=== PATIENT | female | born 1965 | race Caucasian/White ===

== ENCOUNTER 2017-06-24 06:30 | Day surgery (SDC) | payer OTHER ==
[~2017-06-24 06:30] MED LIST: Lactated Ringers 1,000 ML IV SCH; Lidocaine 1%/Sod Bicarbonate in NS 8.4% 1 ML Syringe PRN; Sodium Chloride 0.9% 10 ML Syringe FLUSH PRN
[2017-06-24] MEDS ORDERED: Bupivacaine 0.5% 30 ML SDV ONE (06:31)
[2017-06-24] MEDS ORDERED: Lidocaine 1% 50 ML MDV ONE (06:34)
[2017-06-24] MEDS ORDERED: Bupivacaine 0.25% 30 ML SDV ONE (06:34)
--- NOTE | 2017-06-24 06:57 | PCM.PREANE ---
Preanesthetic Assessment - Anesthesia/Transfusion/Family Hx Anesthesia History: Prior Anesthesia Without Reaction Family History of Anesthesia Reaction: No Transfusion History: No Prior Transfusion(s) - Review of Systems General: No Symptoms Pulmonary: No Symptoms Cardiovascular: No Symptoms Gastrointestinal: No Symptoms Neurological: Numbness (right hand carpal tunnel) Other: Reports: None - Physical Assessment NPO Status Date: 06/23/17 NPO Status Time: 18:00 Pulse: 74 O2 Sat by Pulse Oximetry: 100 Respiratory Rate: 16 Blood Pressure: 110/75 Temperature: 36.4 C Height: 1.6 m Weight: 57 kg ASA Class: 1 Mental Status: Alert & Oriented x3 Airway Class: Mallampati = 1 Dentition: Reports: Normal Dentition, [place](s) Thyro-Mental Finger Breadths: 3 Mouth Opening Finger Breadths: 3 ROM/Head Extension: Full Lungs: Clear to Auscultation, Normal Respiratory Effort Cardiovascular: Regular Rate, Regular Rhythm - Lab Values: Laboratory Last Values MRSA (PCR) Negative 06/22/17 08:38 - Allergies Allergies/Adverse Reactions: Allergies Allergy/AdvReac Type Severity Reaction Status Date / Time No Known Allergies Allergy Verified 06/23/17 13:51 - Blood Blood Available: No Product(s) Available: None - Anesthesia Plan Pre-Op Medication Ordered: None - Acknowledgements Anesthesia Type Planned: MAC Pt an Appropriate Candidate for the Planned Anesthesia: Yes Alternatives and Risks of Anesthesia Discussed w Pt/Guardian: Yes Pt/Guardian Understands and Agrees with Anesthesia Plan: Yes PreAnesthesia Questionnaire HEENT History: Reports: Impaired Vision Other HEENT History: wears glasses Cardiovascular History: Reports: None Respiratory History: Reports: None Gastrointestinal History: Reports: None Genitourinary History: Reports: Other (See Below) Other Genitourinary History: acute cystitis, dysuria 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, Other Musculoskeletal History: carpal tunnel release bilaterally, pilonidal cyst , trigger finger released to right hand Neurological History: Reports: None Psychiatric History: Reports: None Endocrine/Metabolic History: Reports: None Hematologic History: Reports: None Immunologic History: Reports: None Oncologic (Cancer) History: Reports: None Dermatologic History: Reports: Other (See Below) Other Dermatologic History: pilonidal cyst excision - Past Surgical History Head Surgeries/Procedures: Reports: None HEENT Surgical History: Reports: LASIK Cardiovascular Surgical History: Reports: None Respiratory Surgical History: Reports: None GI Surgical History: Reports: None Female Surgical History: Reports: Section, D&C, Hysterectomy Endocrine Surgical History: Reports: None Neurological Surgical History: Reports: None Musculoskeletal Surgical History: Reports: Carpal Tunnel Oncologic Surgical History: Reports: None Dermatological Surgical History: Reports: Other (See Below) - SUBSTANCE USE Smoking Status *Q: Former Smoker Second Hand Smoke Exposure: No Days Per Week of Alcohol Use: 1 Number of Drinks Per Day: 3 Total Drinks Per Week: 3 Recreational Drug Use History: No - HOME MEDS Home Medications: Home Meds Ascorbic Acid [Vitamin C] 500 mg PO DAILY 06/23/17 [History] Meloxicam [Mobic] 15 mg PO DAILY 06/23/17 [History] - CURRENT (IN HOUSE) MEDS Current Meds: Current Medications Lactated Ringer's (Ringers, Lactated) 1,000 mls @ 125 mls/hr IV ASDIRECTED LEIDY Stop: 06/24/17 23:00 Lidocaine/Sodium Bicarbonate (Buffered Lidocaine 1% In Ns 8.4%) 0.25 ml .XX ONETIME PRN PRN Reason: Prior to IV Start Stop: 06/24/17 18:00 Sodium Chloride (Saline Flush) 10 ml FLUSH ASDIRECTED PRN PRN Reason: Keep Vein Open Stop: 06/24/17 18:00 Discontinued Medications Bupivacaine HCl (Marcaine 0.5%) Confirm Administered Dose 30 ml .ROUTE .STK-MED ONE Stop: 06/24/17 06:32 Bupivacaine HCl (Marcaine 0.25%) Confirm Administered Dose 30 ml .ROUTE .STK- MED ONE Stop: 06/24/17 06:35 Lidocaine HCl (Xylocaine 1%) Confirm Administered Dose 50 ml .ROUTE .STK-MED ONE Stop: 06/24/17 06:35
[2017-06-24] MEDS ORDERED: Propofol 200 MG/20 ML SDV ONE (07:19)
[2017-06-24] MEDS ORDERED: fentaNYL 100 MCG/2 ML SDV ONE (07:19)
[2017-06-24] MEDS ORDERED: Midazolam 1 MG/ML 2 ML SDV ONE (07:19)
[2017-06-24 08:57] VITALS: BP 105/74
--- NOTE | 2017-06-28 09:02 | PCM.OPNOTE ---
- General Post-Op/Procedure Note Date of Surgery/Procedure: 06/24/17 Operative Procedure(s): left middle finger a1 porter release Pre Op Diagnosis: left middle finger stenosing tenosynovitis Post-Op Diagnosis: Same Anesthesia Technique: Local, MAC Primary Surgeon: Thai Ascencio Anesthesia Provider: Jaylan Shabazz Insulation Board Back Tender: Luna Cruz EBL in mLs: 5 Complications: None Condition: Good
--- NOTE | 2017-06-28 10:05 | OR ---
DATE OF OPERATION: 06/24/2017 SURGEON: Thai Ascencio MD OPERATION PERFORMED: Left middle finger A1 porter release. PREOPERATIVE DIAGNOSIS: Left middle finger stenosing tenosynovitis. POSTOPERATIVE DIAGNOSIS: Left middle finger stenosing tenosynovitis. ANESTHESIA: Local MAC. ANESTHESIA PROVIDER: Jaylan Shabazz CRNA. FACTORY MAINTENANCE TECHNICIAN: Luna Cruz PA-C. ESTIMATED BLOOD LOSS: Less than 5 mL. COMPLICATIONS: None. CONDITION: Stable. DESCRIPTION OF PROCEDURE: The patient was identified in the preop holding area. Proper site was marked and identified by the surgeon. The patient was taken back to the operating theater where after adequate anesthesia, the patient's left upper extremity was sterilely prepped and draped in the usual sterile fashion. OR time-out was performed. The patient did not receive antibiotics as it is not indicated for soft tissue hand procedure. At this time, left upper extremity had an Esmarch used as a tourniquet on the forearm. A 1% lidocaine without epinephrine and 0.25% Marcaine without epinephrine was then used to anesthetize the incisional site over the A1 porter. Incision was then made. Blunt dissection was taken down to the A1 porter and [place]ell retractors to protect the neurovascular bundles. [place] blade was then used for resection of the A1 porter and a tenotomy scissor was used for resection proximally into the palm. It was found to be adequately released. There were no tendon adhesions noted. The patient had full cant gang sawyer with no signs of catching. At this time, adequate saline was irrigated through the wound, 4-0 nylon simple suture was used for closure of the skin. The patient tolerated the procedure well and sent to PACU in stable condition. MMODAL /[id number]
== END 2017-06-24 09:18 | disposition home or self-care (01) ==
LOC: JD.SDS 06:30
PROVIDERS: ATTEND Orthopaedic Surgery
DX: M65.332 Trigger finger, left middle finger (principal); N30.00 Acute cystitis without hematuria; Z90.710 Acquired absence of both cervix and uterus; Z98.890 Other specified postprocedural states; Z87.891 Personal history of nicotine dependence; Z79.899 Other long term (current) drug therapy
CPT/HCPCS: 26055; 87641; J2250; J3010; J3490; J7120; 01810; J2704

== ENCOUNTER 2018-10-17 06:34 | Day surgery (SDC) | payer BC, OTHER ==
--- NOTE | 2018-10-14 09:11 | PCM.PREANE ---
Preanesthetic Assessment - Anesthesia/Transfusion/Family Hx Anesthesia History: Prior Anesthesia Without Reaction Family History of Anesthesia Reaction: No Transfusion History: No Prior Transfusion(s) Intubation History: Unknown - Review of Systems Pulmonary: No Symptoms (Former Smoker:) Neurological: No Symptoms (History of spinal stenosis) Other: Reports: Sinus Problem (History of allergic rhinitis) - Physical Assessment NPO Status Date: 10/16/18 Height: 1.63 m ASA Class: 2 Mental Status: Alert & Oriented x3 - Lab Values: MRSA= negative All labs reviewed and noted and within acceptable ranges to proceed with scheduled procedure. - Allergies Allergies/Adverse Reactions: Allergies Allergy/AdvReac Type Severity Reaction Status Date / Time No Known Allergies Allergy Verified 01/12/18 13:43 - Anesthesia Plan Pre-Op Medication Ordered: None - Acknowledgements Anesthesia Type Planned: DUONG, MAC Pt an Appropriate Candidate for the Planned Anesthesia: Yes Alternatives and Risks of Anesthesia Discussed w Pt/Guardian: Yes Pt/Guardian Understands and Agrees with Anesthesia Plan: Yes PreAnesthesia Questionnaire HEENT History: Reports: Impaired Vision Other HEENT History: wears glasses Cardiovascular History: Reports: None Respiratory History: Reports: None Gastrointestinal History: Reports: None Genitourinary History: Reports: Other (See Below) Other Genitourinary History: acute cystitis, dysuria 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 Neurological History: Reports: None Other Neuro History: spinal stenosis Psychiatric History: Reports: None Endocrine/Metabolic History: Reports: None Hematologic History: Reports: None Immunologic History: Reports: None Oncologic (Cancer) History: Reports: None Dermatologic History: Reports: Other (See Below) Other Dermatologic History: pilonidal cyst excision - Past Surgical History Head Surgeries/Procedures: Reports: None HEENT Surgical History: Reports: LASIK Cardiovascular Surgical History: Reports: None Respiratory Surgical History: Reports: None GI Surgical History: Reports: None Female Surgical History: Reports: Section, D&C, Hysterectomy Male Surgical History: Reports: None Endocrine Surgical History: Reports: None Neurological Surgical History: Reports: None Musculoskeletal Surgical History: Reports: Carpal Tunnel, Other (See Below) Oncologic Surgical History: Reports: None Dermatological Surgical History: Reports: Other (See Below) - HOME MEDS Home Medications: Home Meds Ascorbic Acid [Vitamin C] 500 mg PO DAILY 06/23/17 [History] Cholecalciferol (Vitamin D3) [Vitamin D] 5,000 unit PO DAILY 01/12/18 [History] Cyanocobalamin (Vitamin B-12) [Vitamin B-12] 1,000 mcg PO DAILY 01/12/18 [ History] Magnesium 200 mg PO DAILY 01/12/18 [History] - CURRENT (IN HOUSE) MEDS Current Meds: Current Medications Lactated Ringer's (Ringers, Lactated) 1,000 mls @ 125 mls/hr IV ASDIRECTED LEIDY Lidocaine/Sodium Bicarbonate (Buffered Lidocaine 1% In Ns 8.4%) 0.25 ml IDERM ONETIME PRN PRN Reason: Prior to IV Start Sodium Chloride (Saline Flush) 10 ml FLUSH ASDIRECTED PRN PRN Reason: Keep Vein Open
[~2018-10-17 06:34] MED LIST changes: +Lidocaine 1%/Sod Bicarbonate in NS 8.4% 1 ML Syringe IDERM PRN; -Lidocaine 1%/Sod Bicarbonate in NS 8.4% 1 ML Syringe PRN
[2018-10-17] MEDS ORDERED: Dexamethasone 4 MG/ML 5 ML MDV ONE (06:49)
[2018-10-17] MEDS ORDERED: fentaNYL 100 MCG/2 ML SDV ONE (06:49)
[2018-10-17] MEDS ORDERED: Lidocaine 1% 6 ML ONE (06:49)
[2018-10-17] MEDS ORDERED: Propofol 200 MG/20 ML SDV ONE (06:49)
[2018-10-17] MEDS ORDERED: Ketorolac 30 MG/ML SDV ONE (06:49)
[2018-10-17] MEDS ORDERED: Lidocaine 0.5% 50 ML SDV ONE (06:49)
[2018-10-17] MEDS ORDERED: Ondansetron 4 MG/2 ML SDV ONE (06:49)
[2018-10-17] MEDS ORDERED: Sodium Bicarbonate 8.4% 50 MEQ/50 ML SDV ONE (06:49)
[2018-10-17] MEDS ORDERED: Midazolam 1 MG/ML 2 ML SDV ONE (06:50)
[2018-10-17] MEDS ORDERED: Bupivacaine 0.25% 10 ML SDV ONE (07:04)
[2018-10-17] MEDS ORDERED: Ondansetron 4 MG/2 ML SDV IVPUSH PRN (07:33)
[2018-10-17] MEDS ORDERED: fentaNYL 100 MCG/2 ML SDV IVPUSH PRN (07:33)
[2018-10-17] MEDS ORDERED: HYDROmorphone 0.5 MG/0.5 ML Syringe IVPUSH PRN (07:33)
[2018-10-17] MEDS ORDERED: diphenhydrAMINE 50 MG/ML SDV IVPUSH PRN (07:33)
[2018-10-17] MEDS ORDERED: ePHEDrine 50 MG/ML SDV IVPUSH PRN (07:33)
[2018-10-17] MEDS ORDERED: Lactated Ringers 1,000 ML ONE (07:35)
[2018-10-17] MEDS ORDERED: Phenylephrine 1 MG in Sodium Chloride 0.9% 10 ML IV SCH (07:45)
[2018-10-17] MEDS ORDERED: EPINEPHrine 1 MG/ML SDV ONE (07:46)
[2018-10-17] MEDS ORDERED: Ropivacaine 0.5% 5 MG/ML 30 ML SDV ONE (07:46)
--- NOTE | 2018-10-17 08:13 | PCM48HPAN ---
Post Anesthesia Note - EVALUATION WITHIN 48HRS OF ANESTHETIC Vital Signs in Normal Range: Yes Patient Participated in Evaluation: Yes Respiratory Function Stable: Yes Airway Patent: Yes Cardiovascular Function Stable: Yes Hydration Status Stable: Yes Pain Control Satisfactory: Yes Nausea and Vomiting Control Satisfactory: Yes Mental Status Recovered: Yes Pulse Rate: 76 SaO2: 97 Resp Rate: 18 Temperature: 36.2 C Blood Pressure: 108/73 Pulse Rate: 76
--- NOTE | 2018-10-17 08:39 | CR ---
Left fifth finger: Six fluoroscopic spot views were obtained utilizing C-arm device centered to the left fifth finger. Comparison: No prior hand or finger exam is available. Study shows fracture within the base of the proximal phalanx. Study shows placement of 2 fixation pins across the fracture line. Fluoroscopy time is given as 103.9 seconds. Impression: 1. Procedural study as described above. Diagnostic code #2
[2018-10-17] MEDS ORDERED: Acetaminophen/HYDROcodone 325-5 MG Tab PO ONE (09:30)
[2018-10-17 10:24] VITALS: BP 126/72
--- NOTE | 2018-10-20 18:46 | PCM.OPNOTE ---
- General Post-Op/Procedure Note Date of Surgery/Procedure: 10/17/18 Operative Procedure(s): closed reduction percutaneous pinning of left fifth proximal phalanx fracture Pre Op Diagnosis: left fifth proximal phalanx fracture Post-Op Diagnosis: Same Anesthesia Technique: Regional Block (reba) Primary Surgeon: Thai Ascencio Anesthesia Provider: Adri Castellanos Director Radiation Oncology: Luna Cruz EBL in mLs: 5 Complications: None Condition: Good
--- NOTE | 2018-10-21 07:26 | OR ---
DATE OF OPERATION: 10/17/2018 SURGEON: Thai Ascencio MD OPERATION PERFORMED: Closed reduction and percutaneous pinning of left fifth proximal phalanx fracture. PREOPERATIVE DIAGNOSIS: Left fifth proximal phalanx fracture. POSTOPERATIVE DIAGNOSIS: Left fifth proximal phalanx fracture. ANESTHESIA: Regional [place] block. ANESTHESIA PROVIDER: Adri Castellanos CRNA. TELETYPE TELEGRAPHER: Luna Cruz PA-C. ESTIMATED BLOOD LOSS: Less than 5 mL. COMPLICATIONS: None. CONDITION: Stable. DESCRIPTION OF PROCEDURE: The patient was identified in the preoperative holding area. Proper site was marked and identified by the surgeon. The patient was taken back to the operative theater, where after adequate anesthesia, the patient's left upper extremity was sterilely prepped and draped in the usual sterile fashion. OR time-out was performed. The patient received 2 g IV antibiotics. At this time, under C-arm fluoroscopy, a closed reduction was performed in the hyperextension deformity at the base of the left fifth proximal phalanx fracture. At this time, once it was reduced two 0.032 K-wires were placed in retrograde fashion through the proximal phalanx. Once this had happened, it was found to have resolution of severe extension deformity. There was no clinical deformity. There was no clinical rotational deformity. At this time, the pins were bent and cut. [place] balls were placed on the pins. The patient was placed in a sterile soft dressing and an ulnar gutter splint, and was sent to the PACU in stable condition. MMODAL /[id number]
== END 2018-10-17 10:10 | disposition home or self-care (01) ==
LOC: JD.SDS 06:34
PROVIDERS: ATTEND Orthopaedic Surgery
DX: S62.617A Displaced fracture of proximal phalanx of left little finger, initial encounter for closed fracture (principal); J30.9 Allergic rhinitis, unspecified; M48.00 Spinal stenosis, site unspecified; M19.90 Unspecified osteoarthritis, unspecified site; X58.XXXA Exposure to other specified factors, initial encounter; Z87.891 Personal history of nicotine dependence; Z79.899 Other long term (current) drug therapy
CPT/HCPCS: 01820; 76000; 76000-26; A9270-GY; C1713; J0171; J1100; J1885; J2001; J2250; J2405; J2704; J2795; J3010; J3490; J7120

== ENCOUNTER → 2019-06-08 | Day surgery (SDC) | payer BC ==
[~2019-06-08] MED LIST changes: +Bupivacaine 0.25% 10 ML SDV ONE; +Ketorolac 30 MG/ML SDV ONE; +Lidocaine 1% 30 ML SDV ONE; +Lidocaine 1% 4 ML ONE; +Propofol 200 MG/20 ML SDV ONE
--- NOTE | 2019-06-08 11:02 | PCM.PREANE ---
Preanesthetic Assessment - Anesthesia/Transfusion/Family Hx Anesthesia History: Prior Anesthesia Without Reaction Family History of Anesthesia Reaction: No Transfusion History: No Prior Transfusion(s) Intubation History: Unknown - Review of Systems General: No Symptoms Pulmonary: No Symptoms Cardiovascular: No Symptoms Gastrointestinal: No Symptoms Neurological: No Symptoms Other: Reports: None - Physical Assessment NPO Status Date: 06/08/19 NPO Status Time: 02:00 Vital Signs: Last Vital Signs Temp 36.8 C 06/08/19 10:44 Pulse 75 06/08/19 10:44 Resp 16 06/08/19 10:44 BP 115/80 06/08/19 10:44 Pulse Ox 100 06/08/19 10:44 Height: 1.6 m Weight: 54.431 kg ASA Class: 1 Mental Status: Alert & Oriented x3 Airway Class: Mallampati = 2 Dentition: Reports: Normal Dentition Thyro-Mental Finger Breadths: 2 Mouth Opening Finger Breadths: 3 ROM/Head Extension: Full Lungs: Clear to Auscultation, Normal Respiratory Effort - Lab Values: Laboratory Last Values MRSA (PCR) Negative 06/06/19 15:21 - Allergies Allergies/Adverse Reactions: Allergies Allergy/AdvReac Type Severity Reaction Status Date / Time No Known Allergies Allergy Verified 06/07/19 17:58 - Acknowledgements Anesthesia Type Planned: MAC Pt an Appropriate Candidate for the Planned Anesthesia: Yes Alternatives and Risks of Anesthesia Discussed w Pt/Guardian: Yes Pt/Guardian Understands and Agrees with Anesthesia Plan: Yes PreAnesthesia Questionnaire HEENT History: Reports: Allergic Rhinitis, Impaired Vision Other HEENT History: wears glasses Cardiovascular History: Reports: None Respiratory History: Reports: None Gastrointestinal History: Reports: None Genitourinary History: Reports: Other (See Below) Other Genitourinary History: acute cystitis, dysuria 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 Neurological History: Other Neuro History: spinal stenosis Psychiatric History: Reports: None Endocrine/Metabolic History: Reports: None Hematologic History: Reports: None Immunologic History: Reports: None Oncologic (Cancer) History: Reports: None Dermatologic History: Reports: Other (See Below) Other Dermatologic History: pilonidal cyst excision - Past Surgical History Head Surgeries/Procedures: Reports: None HEENT Surgical History: Reports: HINA Cardiovascular Surgical History: Reports: None Respiratory Surgical History: Reports: None GI Surgical History: Reports: None Female Surgical History: Reports: Section, D&C, Hysterectomy Male Surgical History: Reports: None Endocrine Surgical History: Reports: None Neurological Surgical History: Reports: None Musculoskeletal Surgical History: Reports: Carpal Tunnel, Other (See Below) ( trigger finger) Oncologic Surgical History: Reports: None Dermatological Surgical History: Reports: Other (See Below) - SUBSTANCE USE Smoking Status *Q: Former Smoker Recreational Drug Use History: No - HOME MEDS Home Medications: Home Meds Ascorbic Acid [Vitamin C] 1,000 mg PO DAILY 06/07/19 [History] Cholecalciferol (Vitamin D3) [Vitamin D3] 1,000 unit PO DAILY 06/07/19 [History] Cyanocobalamin (Vitamin B-12) [Vitamin B-12] 1,000 mcg PO DAILY 06/07/19 [ History] Melatonin 3 mg PO BEDTIME 06/07/19 [History] traMADol [Ultram] 50 - 100 mg PO Q6H PRN #10 tab 06/08/19 [Rx] - CURRENT (IN HOUSE) MEDS Current Meds: Current Medications Lactated Ringer's (Ringers, Lactated) 1,000 mls @ 125 mls/hr IV ASDIRECTED LEIDY Stop: 06/08/19 23:00 Lidocaine/Sodium Bicarbonate (Buffered Lidocaine 1% In Ns 8.4%) 0.25 ml IDERM ONETIME PRN PRN Reason: Prior to IV Start Stop: 06/08/19 23:00 Sodium Chloride (Saline Flush) 10 ml FLUSH ASDIRECTED PRN PRN Reason: Keep Vein Open Stop: 06/08/19 23:00
--- NOTE | 2019-06-08 12:54 | PCM48HPAN ---
Post Anesthesia Note - EVALUATION WITHIN 48HRS OF ANESTHETIC Vital Signs in Normal Range: Yes Patient Participated in Evaluation: Yes Respiratory Function Stable: Yes Airway Patent: Yes Cardiovascular Function Stable: Yes Hydration Status Stable: Yes Pain Control Satisfactory: Yes Nausea and Vomiting Control Satisfactory: Yes Mental Status Recovered: Yes Vital Signs: Last Vital Signs Temp 36.8 C 06/08/19 10:44 Pulse 75 06/08/19 10:44 Resp 16 06/08/19 10:44 BP 115/80 06/08/19 10:44 Pulse Ox 100 06/08/19 10:44 - COMMENTS/OBSERVATIONS Free Text/Narrative:: NO ANESTHESIA COMPLICATIONS NOTED
[2019-06-08 13:38] VITALS: BP 113/69; PULSE 66
--- NOTE | 2019-06-09 09:37 | PCM.OPNOTE ---
- General Post-Op/Procedure Note Date of Surgery/Procedure: 06/08/19 Operative Procedure(s): right thumb a1 porter release Pre Op Diagnosis: right thumb stenosing tenosynovitis Post-Op Diagnosis: Same Anesthesia Technique: Local, MAC Primary Surgeon: Thai Ascencio Anesthesia Provider: Jaylan Shabazz Gas Station Operator: Luna Cruz EBL in mLs: 5 Complications: None Condition: Good
--- NOTE | 2019-06-09 10:08 | OR ---
DATE OF OPERATION: 06/08/2019 SURGEON: Thai Ascencio MD OPERATION PERFORMED: Right thumb A1 porter release. PREOPERATIVE DIAGNOSIS: Right thumb stenosing tenosynovitis. POSTOPERATIVE DIAGNOSIS: Right thumb stenosing tenosynovitis. ANESTHESIA: Local MAC. ANESTHESIA PROVIDER: Jaylan Shabazz CRNA. MODEL MAKER FIREARMS: Luna Cruz PA-C. ESTIMATED BLOOD LOSS: Less than 5 mL. COMPLICATIONS: None. CONDITION: Stable. DESCRIPTION OF PROCEDURE: The patient was identified in the preoperative holding area where proper site was marked and identified by the surgeon. The patient was taken back to the operative theater, where after adequate anesthesia, the patient's right upper extremity was sterilely prepped and draped in usual sterile fashion. OR time- out was performed. The patient received appropriate antibiotics. At this time, Esmarch was used as a tourniquet on the forearm. 1% lidocaine without epinephrine and 0.25% Marcaine without epinephrine were used over the right thumb A1 porter region. A transverse incision was made. Blunt dissection was taken down to the A1 porter. [place] blade was then used for resection of the A1 porter, both proximally and distally, under direct visualization, making sure to stop short of the A2 porter. The tendon showed no signs of tendon adhesions. At this time, adequate saline was irrigated through the wound. 4-0 nylon suture was used for closure of the skin. The patient was placed in a sterile soft dressing and sent to the PACU in stable condition. MMODAL /[id number]
== END | disposition home or self-care (01) ==
LOC: JD.SDS 10:01
PROVIDERS: ATTEND Orthopaedic Surgery
DX: M65.311 Trigger thumb, right thumb (principal); M48.02 Spinal stenosis, cervical region; M19.042 Primary osteoarthritis, left hand; Z87.891 Personal history of nicotine dependence
CPT/HCPCS: 26055; 87641; J1885; J2001; J2704; J3490; J7120

== ENCOUNTER → 2024-05-03 | Day surgery (SDC) | payer BC ==
[~2024-05-03] MED LIST changes: -Bupivacaine 0.25% 10 ML SDV ONE; +Lidocaine 1% 10 ML MDV ONE; -Lidocaine 1% 30 ML SDV ONE; -Lidocaine 1% 4 ML ONE; +Lidocaine 1% 5 ML VIAL ONE; -Lidocaine 1%/Sod Bicarbonate in NS 8.4% 1 ML Syringe IDERM PRN; +Midazolam 1 MG/ML 2 ML SDV ONE; +Sodium Chloride 0.9% 10 ML Syringe FLUSH SCH; +ceFAZolin 2 GM Vial ONE; +fentaNYL 100 MCG/2 ML SDV ONE
[2024-05-03] MEDS: Bupivacaine 0.25% 10 ML SDV ONE (08:27)
[2024-05-03 08:50] VITALS: BP 118/74; PULSE 60
== END | disposition home or self-care (01) ==
LOC: JD.SDS 07:00
PROVIDERS: ATTEND Orthopaedic Surgery
DX: M65.841 Other synovitis and tenosynovitis, right hand (principal); Z87.891 Personal history of nicotine dependence
CPT/HCPCS: 26055; J0665; J0690; J1885; J2250; J2704; J3010; J3490